=== PATIENT | female | born 1965 | race Caucasian/White ===

== ENCOUNTER 2016-11-24 14:06 | Day surgery (SDC) | payer MEDICAID ==
[~2016-11-24] VITALS: Ht 160 cm; Wt 90.7 kg
[~2016-11-24 14:06] MED LIST: AMBIEN 10MG TAB10 MG PO; BUSPAR 5MG TAB5 MG PO; DYAZIDE CAP (M1 EACH PO; GLIMEPIRIDE 2MG2 MG PO; LEXAPRO 20 MG T20 MG PO; LIVALO2 MG PO; LYRICA 100 MG100 MG PO; METFORMIN1000 MG PO; OMEPRAZOLE40 MG PO; REMERON15 MG PO
[2016-11-24 14:22] VITALS: BP 160/88
[2016-11-24 14:37] VITALS: BP 160/88
[2016-11-24 14:38] VITALS: BP 151/86
--- NOTE | 2016-11-24 14:45 | Procedure Note ---
Procedure detail Date of procedure: 11/24/16 Anesthesiologist: Devyn Hutchison CRNA Complications: None Pre-procedure diagnosis: Sacroiliitis Post-procedure diagnosis: Same Indications for procedure: This patient is a pleasant 50-year-old white female the comes our pain clinic today for initial consultation regarding chronic low back pain she describes as constant, dull, aching. Patient also complaining of LEFT leg pain. She has had lumbar laminectomy discectomy in the past January 2013. Patient recently had LEFT foot surgery to remove bone spurs. Patient also had a recent visit with Dr. Felix regarding additional spine surgery. He recommends no additional surgery. Patient has extreme point tenderness over the LEFT SI joint. I discussed in detail with the patient regarding LEFT SI joint injection. We will proceed with this today Procedure detail: Procedure: Left sacroiliac injection under fluoroscopy Informed consent was obtained and the risk and benefits of the procedure were explained to the patient.~ The patient was taken to the procedure room and noninvasive monitors were placed including noninvasive blood pressure cuff and pulse oximeter.~ The patient was placed prone on the procedure table.~ The~ left hip was cleansed using Betadine as a cleansing solution.~ C-arm fluorosocpy was used to view the left SI joint.~ The skin and subcutaneous tissues were anesthetized using Lidocaine 1.5% and a 25-gauge needle.~ After this, a 22-gauge spinal needle was inserted under fluoroscopic guidance into the inferior aspect of the left SI joint.~ Omnipaque dye was injected and a good spread was seen throughout the joint.~ After this, approximately 5 mL of bupivacaine 0.25% and Depo-Medrol 40 mg was incrementally injected into the sacroiliac joint.~ The patient tolerated the procedure well with no complications. Plan and disposition: Follow up with this patient and reassess her symptoms in our clinic. Patient was reevaluated 10 minutes post procedure. Patient reports 90 percent improvement terms of her LEFT hip pain. at [id number]
[2016-11-24 14:59] VITALS: BP 143/83
[2016-12-14] MEDS ORDERED: ABILIFY2 MG PO (14:09)
== END 2016-11-24 14:59 | disposition home or self-care (01) ==
LOC: PM 14:06
PROC: 3E0U33Z Introduction of Anti-inflammatory into Joints, Percutaneous Approach (ICD-10-PCS; principal; 2016-11-24)
PROC: 3E0U3BZ Introduction of Anesthetic Agent into Joints, Percutaneous Approach (ICD-10-PCS; 2016-11-24)
DX: M46.1 Sacroiliitis, not elsewhere classified (principal)
CPT/HCPCS: G0260; J1030